=== PATIENT | female | born 2000 ===

== ENCOUNTER 2024-10-23 08:39 | Outpatient (AMB) | payer MEDICAID, SELFPAY ==
--- NOTE | 2024-10-23 08:41 | OBCLNT_ITS ---
Vital Signs 10/23/24 08:50 Height 1.57 m Height Method Stated Weight 57.266 kg Weight Measurement Method Standing Scale BMI 23.1 BP 106/65 Blood Pressure Source Automatic Cuff Blood Pressure Location Right Upper Arm Position Sitting Respiration 18 Pulse 74 Pulse Source Monitor Temp 97.7 F Temp Source Temporal Artery Scan Pulse Oximetry (%) 98 Oxygen Delivery Method Room Air Allergies/Home Meds Allergies & Medications Allergies No Known Allergies Allergy (Verified 10/23/24 08:50) Medication Reconciliation vits no.126-ferrous fum 28 mg iron-folic acid 800 mcg tablet (Classic ) tab PO 10/23/24 [History Confirmed 10/23/24] Intake Visit Data Collection New Patient or Established: Established Patient (seen at [facility] within 3 years) Reason for Visit:: First visit for , nausea, decreased appetite Do You Feel Safe at Home: Yes Authorities Contacted: N/A PCP or OBGYN visit in last 3 months: Yes Are you currently on any form of Control: No Last menstrual period: 07/16/24 Pain Present Currently: No Smoking Status Smoking Status: Never smoker Questionnaires Covid-19 Vaccine Questionnaire Has patient been vacinated for Covid-19 Have you been vacinated for Covid-19: No PHQ-9 PHQ-2 Over the last 2 weeks, how often have you been bothered by any of the following problems? 1. Little interest or pleasure in doing things: not at all 2. Feeling down, depressed, or hopeless: not at all Total score: 0 Depression screen completed yes Social History Living Situation History Marital Status: Life Partner Lives With: Spouse Housing: House Tobacco History Smoking Status: Never smoker Alcohol History Alcohol Intake: Never Domestic Abuse History Do You Feel Safe at Home: Yes Past Medical History Past Medical History Have you ever been diagnosed with any of the following: Cardiology Problems Congestive Heart Failure: No Respiratory Problems Chronic Obstructive Pulmonary Disease (COPD): No Asthma: No Genital/Urinary Problems Renal Disease: No Endocrine Problems Diabetes Mellitus Type 1: No Diabetes Mellitus Type 2: No Psychologic Problems Depression: No Anxiety: No Depression: No Other Problems Hospitalization: No Falls: No Blood Transfusions: Yes Anesthesia Reactions: No History of Present Illness RUBEN Hurley is a woman presenting for her first visit. She reports her last menstrual period was on July 16, which calculates to a gestational age of 14 weeks and an estimated due date of April 22. This is her third , with two previous vaginal deliveries resulting in children aged 2 and 10 years old. The patient reports experiencing some -related symptoms, including a decrease in appetite. She denies significant nausea or vomiting. No other specific complaints or problems are mentioned. Mei's history includes one delivery at this hospital for her 1-year-old child, while her 10-year-old was born in [place]. Obstetric History - GTPAL: L2 - Current : - Gestational age: 14 weeks by last menstrual period - Estimated due date: April 22, 2025 - history: - 1-year-old child, delivered vaginally at this hospital - 8-year-old child, delivered vaginally in [place] Medications and Supplements - vitamins Social History - Children: Has two children, ages 2 and 10 - Language: Palestinian-speaking Review of Systems General: Positive for decreased appetite. Gastrointestinal: Negative for nausea, vomiting. OB Ultrasound OB Ultrasound Ultrasound technique: transabdominal Gestational sac assessment: Presence, location, size, shape: - heart rate: 149 bpm (normal) - Gestational age: 12 weeks (based on measurements) OB Initial Visit OB Flowsheet OB Flowsheet Initial Weight: Not Recorded Date -?-?-?-?-?-?-?-?-?-?-?-?- EGA Weight Edema CTX Effacement BP Fundal ht Pres Dilation Effacement Station Visit Note Alb Glu FHR Mov 10/23/24 -?-?-?-?-?-?-?-?-?-?-?-?- 14w 1d 57.266 kg 106/65 14w0 d by LMP (CELIA 04/22/25). ? appetite. No CTX/LOF/VB. 2 prior VD ([facility], [place]). vitamins. Palestinian-speaking. FHR 149 bpm, single live IUP, EGA 12w0d by bedside US. Plan: formal US for dating/anatomy, routine labs, continue vitamins, f/u after results. Routine care initiated, anticipatory guidance provided. Menstrual History Menstrual reliability: definite Flow: light Menstrual regularity: irregular Monthly: No Age at menarche: 11 On control pills at conception: No Date of positive home test: 08/26/24 OB History : 3 Para: 2 # of Living Children: 2 Infection History & Risk Evaluation History of STDs: none HIV risk evaluation: low risk Hepatitis B risk evaluation: low risk Patient or partner has history of Genital Herpes: No Varicella/chicken pox status: immunized Genetic Screening & History Genetic Screening/Teratology Counseling - Includes patient, baby's father, or anyone in either family with: 1. Patient's age 35 years or older as of estimated date of delivery: No 2. Thalassemia (Citizen Of The [place], Kenyan, Mediterranean, or Background); MCV less than 80: No 3. Neural Tube Defect (Meningomyelocele, Spina Bifida, or Anencephaly): No 4. Congenital Heart Defect: No 5. Down Syndrome: No 6. Juancarlos-Sachs (Ashkenazi Yazidi, Cajun, Beninese Cecil): No 7. Анна Disease (Ashkenazi Yazidi): No 8. Familial Dysautonomia (Ashkenazi Yazidi): No 9. Sickle Cell Disease or Trait (): No 10. Hemophilia or other blood disorders: No 11. Muscular Dystrophy: No 12. Cystic Fibrosis: No 13. Revere's Chorea: No 14. Mental Retardation/Autism: No 15. Other inherited genetic or chromosomal disorder: No 16. Maternal Metabolic Disorder (EG,TYPE 1 Diabetes, PKU): No 17. Patient or baby's father had a child with defects not listed above: No 18. Recurrent loss or a stillbirth: No 19. Medications (including supplements, vitamins, herbs or otc drugs)/illicit/recreational drugs/alcohol since last menstrual period: No 20. Any other: No Infection History 1. Live with someone with TB or exposed to TB: No 2. Rash or viral illness since last menstrual period: No 3. Hepatitis B,C: No Other (see comments) Source: [employer] Assessment & Plan Diagnosis / Problem List (1) Supervision of high risk , unspecified, first trimester: Status: Acute Plan Mei, , presents for initial obstetric visit at approximately 14 weeks gestation based on LMP of July 16, 2024, with chief complaint of decreased appetite. Intrauterine Assessment: Patient presents for initial obstetric visit. LMP reported as July 16, 2024, which correlates to an estimated gestational age (EGA) of 14 weeks and estimated due date (CELIA) of April 22, 2025. Bedside ultrasound performed, revealing a single live intrauterine with heart rate of 149 bpm, which is within normal range. measurements suggest a gestat ional age of 12 weeks, which is close to but slightly discrepant from the LMP- based dating. Patient reports decreased appetite but denies significant nausea or vomiting. Plan: - Order official ultrasound for definitive dating and anatomical survey - Order routine labs - Patient to obtain vitamins - Follow-up appointment to be scheduled after lab and ultrasound results are available Obstetrical history Assessment: , with two previous vaginal deliveries. Children are 10 years old and 1 years old. The 1-year-old was delivered at this hospital, while the 10-year-old was born in [place]. Plan: - Continue routine care Office Procedures OB Clinic LOC & Office Proc's Nursing/Assessment Patient Status: Initial/New Patient OB Clinic Nursing Assessment: Medication Reconciliation, Update PMH in EMR and Vital Signs OB Clinic Coordination of Care: Complex Care and Chronic Disease 1-5, Education Complex Pt/Fam, Consent,records obtained, informed consent, Lab and Imaging orders, Results/Orders obtained and Staff clarify orders New Patient Charge New Patient Point Assignment: [id number] New Patient Point Charge: BULKER Level 3 ([id number])
[2024-10-23 08:50] VITALS: BP 106/65; PULSE 74; RESP 18; TEMP 36.5; O2SAT 98; BMI 23.1
== END 2024-10-23 09:08 | disposition home or self-care (01) ==
LOC: HODSOBC 08:39
PROVIDERS: PCP Family Medicine; Referring Provider Family Medicine; Supervising Provider Obstetrics & Gynecology; Visit Provider Obstetrics & Gynecology
DX: O09.92 Supervision of high risk pregnancy, unspecified, second trimester (principal); Z3A.14 14 weeks gestation of pregnancy
CPT/HCPCS: 99203; G0463

== ENCOUNTER 2024-11-21 15:40 | Outpatient (AMB) | payer MEDICAID, SELFPAY ==
[2024-11-21 15:49] VITALS: BP 97/57; PULSE 81; RESP 18; TEMP 36.8; O2SAT 98; BMI 24.0
--- NOTE | 2024-11-21 15:49 | OBCLNT_ITS ---
Vital Signs 11/21/24 15:49 Height 1.57 m Height Method Stated Weight 59.421 kg Weight Measurement Method Standing Scale BMI 24.0 BP 97/57 L Blood Pressure Source Automatic Cuff Blood Pressure Location Right Upper Arm Position Sitting Respiration 18 Pulse 81 Pulse Source Monitor Temp 98.2 F Temp Source Oral Pulse Oximetry (%) 98 Oxygen Delivery Method Room Air Allergies/Home Meds Allergies & Medications Allergies No Known Allergies Allergy (Verified 11/21/24 15:50) Medication Reconciliation vits no.126-ferrous fum 28 mg iron-folic acid 800 mcg tablet (Classic ) tab PO 10/23/24 [History Confirmed 11/21/24] azithromycin 500 mg tablet 1,000 mg (2 x 500 mg) PO QDAY 1 day #2 tabs 11/21/24 [Rx] azithromycin 500 mg tablet 1,000 mg (2 x 500 mg) PO QDAY 1 day #2 tabs 11/21/24 [Rx] Intake Visit Data Collection New Patient or Established: Established Patient (seen at [facility] [place] within 3 years) Reason for Visit:: CARE Seen by Clinical Staff ONLY (RN/MA): No Glass Blowing 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 1. Little interest or pleasure in doing things: not at all 2. Feeling down, depressed, or hopeless: not at all Total score: 0 PHQ-9 3. Trouble falling or staying asleep, or sleeping too much: Not at all 4. Feeling tired or having little energy: Not at all 5. Poor appetite or overeating: Not at all 6. Feeling bad about yourself - or that you are a failure or have let yourself or your family down: Not at all 7. Trouble concentrating on things, such as reading the newspaper or watching television: Not at all 8. Moving or speaking so slowly that other people could have noticed? - Or the opposite - being so fidgety or restless that you have been moving around a lot more than usual: not at all 9. Thoughts that you would be better off or of hurting yourself in some way: Not at all Total score: 0 Source: Developed by Drs. Quintin Clark, Destiny Lyons, Sukhi Nichole and colleagues, with an educational john from [employer]. 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 ? appetite. No CTX/LOF/VB. 2 prior VD ([facility] [place], [place]). vitamins. Turkmen-speaking. FHR 149 bpm, single live IUP, EGA 12w0d by bedside US. Plan: formal US for dating/anatomy, routine labs, continue vitamins, f/u after results. Routine care initiated, anticipatory guidance provided. 11/21/24 -?-?-?-?-?-?-?-?-?-?-?-?- 16w 1d 59.421 kg 97/57 absent unknown 16 145 doing well , light FM, no SAB complaints discuss lab, AFP today. schedule MFM for anatomy scan. continue PNV, sab precaution, increase fluid. rtc 4 week discuss lab, AFP today. sche dule MFM for anatomy scan. continue PNV, sab precaution, increase fluid. rtc 4 week. + chlamydia, reviewed results with patient, discuss safe sex, ordered Zithromax 1 gm to patient and partner. no sex x 1 week, condom x 2 week. ALPHONSE in 4 week CELIA Calculator Estimated Delivery Date Method Current WG Current Estimate 05/07/25 Ultrasound #1 16w 1d Other Estimates 04/22/25 LMP (Certain) 18w 2d Notes Visit Date: 11/21/24 Last Updated by: Sravani Pan, JEMAL 24 yo LMP 07/16/24.. EDC 04/22/25. wrong dates. OB sono 10/23/24: 12 wk. EDC 05/07/25. HBsag-, hiv-,HC-, GC/CT- rub ni, O+,abs-, Chlamydia+/GC-. NIPT-/Girl, SMA-, CF- RX zithromax 1 gm to pt and partner 11/21 Office Procedures OB Clinic LOC & Office Proc's Nursing/Assessment Patient Status: Established Patient OB Clinic Nursing Assessment: Medication Reconciliation, Update PMH in EMR and Vital Signs OB Clinic Coordination of Care: Complex Care and Chronic Disease 1-5, Consent,records obtained, informed consent, Education Simp Pt/Fam, Lab and Imaging orders, Results/Orders obtained and Staff clarify orders Special Needs: Heart tones Established Patient Charge Established Patient Point Assignment: 135 Established Patient Point Charge: EP Level 4 (120-155) Assessment & Plan Diagnosis / Problem List (1) Supervision of high risk , unspecified, first trimester: Status: Acute (2) Chlamydia contact: Status: Acute Plan AFP today, schedule anatomy scan with MFM, discuss + CT, zithromax 1 gm to patient and partner, no sex x 1 week, condom x 2 week, discuss safe sex. continue pnv, increase fluid. ALPHONSE 4 week and OBC Additional Plan Follow Up: 4 Weeks (obc/alphonse)
== END 2024-11-21 16:56 | disposition home or self-care (01) ==
LOC: HODSOBC 15:40
PROVIDERS: PCP Family Medicine; Referring Provider Family Medicine; Supervising Provider Obstetrics & Gynecology; Visit Provider Obstetrics & Gynecology
DX: O09.892 Supervision of other high risk pregnancies, second trimester (principal); Z3A.16 16 weeks gestation of pregnancy; O98.312 Other infections with a predominantly sexual mode of transmission complicating pregnancy, second trimester; A56.8 Sexually transmitted chlamydial infection of other sites
CPT/HCPCS: 99214; G0463

== ENCOUNTER 2024-12-31 13:42 | Outpatient (AMB) | payer MEDICAID, SELFPAY ==
[2024-12-31 13:51] VITALS: BP 114/69; PULSE 108; RESP 17; TEMP 37; O2SAT 96; BMI 24.3
--- NOTE | 2024-12-31 13:51 | OBCLNT_ITS ---
Vital Signs 12/31/24 13:51 Height 1.57 m Height Method Stated Weight 59.988 kg Weight Measurement Method Standing Scale BMI 24.3 BP 114/69 Blood Pressure Source Automatic Cuff Blood Pressure Location Right Upper Arm Position Sitting Respiration 17 Pulse 108 H Pulse Source Monitor Temp 98.6 F Temp Source Temporal Artery Scan Pulse Oximetry (%) 96 Oxygen Delivery Method Room Air Allergies/Home Meds Allergies & Medications Allergies No Known Allergies Allergy (Verified 12/31/24 13:52) Medication Reconciliation vits no.126-ferrous fum 28 mg iron-folic acid 800 mcg tablet (Classic ) tab PO 10/23/24 [History Confirmed 12/31/24] Intake Visit Data Collection New Patient or Established: Established Patient (seen at [facility] within 3 years) Reason for Visit:: OBC Seen by Clinical Staff ONLY (RN/MA): No Appliance Mechanic Required: No Do You Feel Safe at Home: Yes Authorities Contacted: N/A PCP or OBGYN visit in last 3 months: Yes Date of Last PCP or OBGYN visit: 11/21/24 Hx Now: Yes Are you currently on any form of Control: No Pain Present Currently: No Pain Scale Used: Guallpa-Jacinto/Numerical Pain scale:: 0 Smoking Status Smoking Status: Never smoker Questionnaires Covid-19 Vaccine Questionnaire Has patient been vacinated for Covid-19 Have you been vacinated for Covid-19: No PHQ-9 PHQ-2 Over the last 2 weeks, how often have you been bothered by any of the following problems? 1. Little interest or pleasure in doing things: not at all 2. Feeling down, depressed, or hopeless: not at all Total score: 0 PHQ-9 3. Trouble falling or staying asleep, or sleeping too much: Not at all 4. Feeling tired or having little energy: Not at all 5. Poor appetite or overeating: Not at all 6. Feeling bad about yourself - or that you are a failure or have let yourself or your family down: Not at all 7. Trouble concentrating on things, such as reading the newspaper or watching television: Not at all 8. Moving or speaking so slowly that other people could have noticed? - Or the opposite - being so fidgety or restless that you have been moving around a lot more than usual: not at all 9. Thoughts that you would be better off or of hurting yourself in some way: Not at all Total score: 0 If you checked off any problems, how difficult have these problems made it for you to do your work, take care of things at home, or get along with other people?: not difficult at all Source: Developed by Drs. Quintin Clark, Destiny Lyons, Sukhi Nichole and colleagues, with an educational john from [employer]. Depression screen completed yes Social History Living Situation History Marital Status: Lives With: Family Housing: House Housing Other:: Patient lives with her parents. This is a new father of the baby. 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 ? appetite. No CTX/LOF/VB. 2 prior VD ([facility], [place]). vitamins. Sinhala-speaking. FHR 149 bpm, single live IUP, EGA 12w0d by bedside US. Plan: formal US for da ting/anatomy, routine labs, continue vitamins, f/u after results. Routine care initiated, anticipatory guidance provided. 11/21/24 -?-?-?-?-?-?-?-?-?-?-?-?- 16w 1d 59.421 kg 97/57 absent unknown 16 145 doing well , light FM, no SAB complaints discuss lab, AFP today. schedule MFM for anatomy scan. continue PNV, sab precaution, increase fluid. rtc 4 week discuss lab, AFP today. nellie dozier MFM for anatomy scan. continue PNV, sab precaution, increase fluid. rtc 4 week. + chlamydia, reviewed results with patient, discuss safe sex, ordered Zithromax 1 gm to patient and partner. no sex x 1 week, condom x 2 week. ALPHONSE in 4 week 12/31/24 -?-?-?-?-?-?-?-?-?-?-?-?- 21w 6d 59.988 kg 114/69 absent unknown 23 145 active no OB complaints, fetus active Nuswab plus/ALPHONSE. ptl precaution. hydrate. keep appointment 01/02. rtc 4 week OBC. safe sex CELIA Calculator Estimated Delivery Date Method Current WG Current Estimate 05/07/25 Ultrasound #1 21w 6d Other Estimates 04/22/25 LMP (Certain) 24w 0d Notes Visit Date: 11/21/24 Last Updated by: Sravani Pan CNM 24 yo LMP 07/16/24.. EDC 04/22/25. wrong dates. OB sono 10/23/24: 12 wk. EDC 05/07/25. HBsag-, hiv-,HC-, GC/CT- rub ni, O+,abs-, Chlamydia+/GC-. /NIPT-/Girl, SMA-, CF- RX zithromax 1 gm to pt and partner 11/21 Office Procedures OB Clinic LOC & Office Proc's Nursing/Assessment Patient Status: Established Patient OB Clinic Nursing Assessment: Medication Reconciliation, Update PMH in EMR and Vital Signs OB Clinic Coordination of Care: Complex Care and Chronic Disease 1-5, Consent,records obtained, informed consent, Education Simp Pt/Fam and Staff clarify orders Special Needs: Heart tones Established Patient Charge Established Patient Point Assignment: 115 Established Patient Point Charge: EP Level 3 (80-115) Assessment & Plan Diagnosis / Problem List (1) Encounter for supervision of high risk in second trimester, antepartum: Status: Acute Additional Plan Follow Up: 4 Weeks (obc)
== END 2024-12-31 14:08 | disposition home or self-care (01) ==
LOC: HODSOBC 13:42
PROVIDERS: PCP Family Medicine; Referring Provider Family Medicine; Supervising Provider Advanced Practice Midwife; Visit Provider Advanced Practice Midwife
DX: O09.92 Supervision of high risk pregnancy, unspecified, second trimester (principal); Z3A.21 21 weeks gestation of pregnancy
CPT/HCPCS: 99213; G0463

== ENCOUNTER 2025-01-28 14:37 | Outpatient (AMB) | payer MEDICAID, SELFPAY ==
--- NOTE | 2025-01-28 14:44 | OBCLNT_ITS ---
Vital Signs 01/28/25 14:45 Height 1.57 m Height Method Stated Weight 58.74 kg Weight Measurement Method Standing Scale BMI 23.8 BP 96/58 L Blood Pressure Source Automatic Cuff Blood Pressure Location Right Upper Arm Position Sitting Respiration 17 Pulse 72 Pulse Source Monitor Temp 98.1 F Temp Source Temporal Artery Scan Pulse Oximetry (%) 98 Oxygen Delivery Method Room Air Allergies/Home Meds Allergies & Medications Allergies No Known Allergies Allergy (Verified 01/28/25 14:53) Medication Reconciliation vits no.126-ferrous fum 28 mg iron-folic acid 800 mcg tablet (Classic ) tab PO 10/23/24 [History Confirmed 01/28/25] azithromycin 500 mg tablet 1,000 mg (2 x 500 mg) PO QDAY 1 day #2 tabs 01/28/25 [Rx] azithromycin 500 mg tablet 1,000 mg (2 x 500 mg) PO QDAY 1 day #2 tabs 01/28/25 [Rx] clotrimazole 2 % vaginal cream (Gyne-Lotrimin) 1 appful vaginal QHS 3 days #21 grams 01/28/25 [Rx] Intake Visit Data Collection New Patient or Established: Established Patient (seen at [facility] within 3 years) Reason for Visit:: OBC Seen by Clinical Staff ONLY (RN/MA): No Student Liaison Officer Required: No Do You Feel Safe at Home: Yes Authorities Contacted: N/A PCP or OBGYN visit in last 3 months: Yes Date of Last PCP or OBGYN visit: 12/31/24 Hx Now: Yes Are you currently on any form of Control: No Pain Present Currently: Yes Pain Location: Back Pain Scale Used: Guallpa-Jacinto/Numerical Pain scale:: 4 Smoking Status Smoking Status: Never smoker Questionnaires Covid-19 Vaccine Questionnaire Has patient been vacinated for Covid-19 Have you been vacinated for Covid-19: No PHQ-9 PHQ-2 Over the last 2 weeks, how often have you been bothered by any of the following problems? 1. Little interest or pleasure in doing things: not at all 2. Feeling down, depressed, or hopeless: not at all Total score: 0 PHQ-9 3. Trouble falling or staying asleep, or sleeping too much: Not at all 4. Feeling tired or having little energy: Not at all 5. Poor appetite or overeating: Not at all 6. Feeling bad about yourself - or that you are a failure or have let yourself or your family down: Not at all 7. Trouble concentrating on things, such as reading the newspaper or watching television: Not at all 8. Moving or speaking so slowly that other people could have noticed? - Or the opposite - being so fidgety or restless that you have been moving around a lot more than usual: not at all 9. Thoughts that you would be better off or of hurting yourself in some way: Not at all Total score: 0 If you checked off any problems, how difficult have these problems made it for you to do your work, take care of things at home, or get along with other people?: not difficult at all Source: Developed by Drs. Quintin Clark, Destiny Lyons, Sukhi Nichole and colleagues, with an educational john from [employer]. Depression screen completed yes Social History Living Situation History Marital Status: Lives With: Family Housing: House Housing Other:: Patient lives with her parents. This is a new father of the baby. 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 ? appetite. No CTX/LOF/VB. 2 prior VD ([facility], [place]). vitamins. Bruneian-speaking. FHR 149 bpm, single live IUP, EGA 12w0d by bedside US. Plan: formal US for dating/anatomy, routine labs, continue vitamins, f/u after results. Routine care initiated, anticipatory guidance provided. 11/21/24 -?-?-?-?-?-?-?-?-?-?-?-?- 16w 1d 59.421 kg 97/57 absent unknown 16 145 doing well , light FM, no SAB complaints discuss lab, AFP today. schedule MFM for anatomy scan. continue PNV, sab precaution, increase fluid. rtc 4 week discuss lab, AFP today. sche dule MFM for anatomy scan. continue PNV, sab precaution, increase fluid. rtc 4 week. + chlamydia, reviewed results with patient, discuss safe sex, ordered Zithromax 1 gm to patient and partner. no sex x 1 week, condom x 2 week. ALPHONSE in 4 week 12/31/24 -?-?-?-?-?-?-?-?-?-?-?-?- 21w 6d 59.988 kg 114/69 absent unknown 23 145 active no OB complaints, fetus active Nuswab plus/ALPHONSE. ptl precaution. hydrate. keep appointment 01/02. rtc 4 week OBC. safe sex 01/28/25 -?-?-?-?-?-?-?-?-?-?-?-?- 25w 6d 58.74 kg 96/58 absent unknown 25 147 active + Nuswab ALPHONSE for chlamydia. + yeast. . fetus active, no VB,no ROM,Nu leaking, fetus active Zithromax 1 g to patient partner. Discussed positive chlamydia results. No sex. And I discussed safe sex with patient. Discussed importance of partner treatment. Ordered third trimester labs. Ordered MACHINE MOVER Lotrimin 1-2 per vagina every night for 3 nights. Patient has follow-up ultrasound in 6 to 8 weeks. Repeat test of cure in 4 weeks. CELIA Calculator Estimated Delivery Date Method Current WG Current Estimate 05/07/25 Ultrasound #1 25w 6d Other Estimates 04/22/25 LMP (Certain) 28w 0d Notes Visit Date: 01/28/25 Last Updated by: Sravani Pan CNM 8/: ALPHONSE +. rx 1 gm zithromax to patient and partner Visit Date: 11/21/24 Last Updated by: Sravani Pan CNM 24 yo LMP 07/16/24.. EDC 04/22/25. wrong dates. OB sono 10/23/24: 12 wk. EDC 05/07/25. HBsag-, hiv-,HC-, GC/CT- rub ni, O+,abs-, Chlamydia+/GC-. NIPT-/Girl, SMA-, CF- RX zithromax 1 gm to pt and partner 11/21 Office Procedures OB Clinic LOC & Office Proc's Nursing/Assessment Patient Status: Established Patient OB Clinic Nursing Assessment: Medication Reconciliation, Update PMH in EMR and Vital Signs OB Clinic Coordination of Care: Complex Care and Chronic Disease 1-5, Consent,records obtained, informed consent, Education Simp Pt/Fam and Staff clarify orders Special Needs: Heart tones Established Patient Charge Established Patient Point Assignment: 115 Established Patient Point Charge: EP Level 3 (80-115) Assessment & Plan Diagnosis / Problem List (1) Chlamydia contact: Status: Acute (2) Encounter for supervision of high risk in second trimester, antepartum: Status: Acute Plan Third trimester labs ordered. Zithromax 1 g to patient and partner. No sex. Discussed test of cure results. Discussed safe sex. MACHINE MOVER Lotrimin x 7. Follow- up maternal- medicine appointment in 6 to 8 weeks. And labor precautions given. Test of cure in 4 weeks. Return in 4 weeks OB check Additional Plan Follow Up: 4 Weeks (obc)
[2025-01-28 14:45] VITALS: BP 96/58; PULSE 72; RESP 17; TEMP 36.7; O2SAT 98; BMI 23.8
== END 2025-01-28 14:58 | disposition home or self-care (01) ==
LOC: HODSOBC 14:37
PROVIDERS: Supervising Provider Advanced Practice Midwife; Visit Provider Advanced Practice Midwife
DX: O09.892 Supervision of other high risk pregnancies, second trimester (principal); O98.312 Other infections with a predominantly sexual mode of transmission complicating pregnancy, second trimester; A56.8 Sexually transmitted chlamydial infection of other sites; Z3A.25 25 weeks gestation of pregnancy
CPT/HCPCS: 99213; G0463

== ENCOUNTER 2025-02-26 15:10 | Outpatient (AMB) | payer MEDICAID, SELFPAY ==
--- NOTE | 2025-02-26 15:14 | OBCLNT_ITS ---
Vital Signs 02/26/25 15:16 Height 1.57 m Height Method Stated Weight 61.008 kg Weight Measurement Method Standing Scale BMI 24.7 BP 97/68 Blood Pressure Source Automatic Cuff Blood Pressure Location Left Upper Arm Position Sitting Respiration 16 Pulse 80 Pulse Source Monitor Temp 98 F Temp Source Oral Pulse Oximetry (%) 98 Oxygen Delivery Method Room Air Allergies/Home Meds Allergies & Medications Allergies No Known Allergies Allergy (Verified 02/26/25 15:25) Medication Reconciliation vits no.126-ferrous fum 28 mg iron-folic acid 800 mcg tablet (Classic ) tab PO 10/23/24 [History Confirmed 02/26/25] Intake Visit Data Collection New Patient or Established: Established Patient (seen at [facility] within 3 years) Reason for Visit:: CARE Seen by Clinical Staff ONLY (RN/MA): No Interpreter Deaf Required: No Do You Feel Safe at Home: Yes Authorities Contacted: N/A PCP or OBGYN visit in last 3 months: Yes Hx Now: Yes Are you currently on any form of Control: No Pain Present Currently: No Pain Scale Used: Guallpa-Jacinto/Numerical Pain scale:: 0 Smoking Status Smoking Status: Never smoker Questionnaires Covid-19 Vaccine Questionnaire Has patient been vacinated for Covid-19 Have you been vacinated for Covid-19: Yes PHQ-9 PHQ-2 Over the last 2 weeks, how often have you been bothered by any of the following problems? 1. Little interest or pleasure in doing things: not at all 2. Feeling down, depressed, or hopeless: not at all Total score: 0 PHQ-9 3. Trouble falling or staying asleep, or sleeping too much: Not at all 4. Feeling tired or having little energy: Not at all 5. Poor appetite or overeating: Not at all 6. Feeling bad about yourself - or that you are a failure or have let yourself or your family down: Not at all 7. Trouble concentrating on things, such as reading the newspaper or watching television: Not at all 8. Moving or speaking so slowly that other people could have noticed? - Or the opposite - being so fidgety or restless that you have been moving around a lot more than usual: not at all 9. Thoughts that you would be better off or of hurting yourself in some way: Not at all Total score: 0 Source: Developed by Drs. Quintin Clark, Destiny Lyons, Sukhi Nichole and colleagues, with an educational john from [employer]. Depression screen completed yes Social History Living Situation History Lives With: Family Housing: House Housing Other:: Patient lives with her parents. This is a new father of the baby. 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 ? appetite. No CTX/LOF/VB. 2 prior VD ([facility], [employer]). vitamins. Botswanan-speaking. FHR 149 bpm, single live IUP, EGA 12w0d by bedside US. Plan: formal US for dating/anatomy, routine labs, continue vitamins, f/u after results. Routine care initiated, anticipatory guidance provided. 11/21/24 -?-?-?-?-?-?-?-?-?-?-?-?- 16w 1d 59.421 kg 97/57 absent unknown 16 145 doing well , light FM, no SAB complaints discuss lab, AFP today. schedule MFM for anatomy scan. continue PNV, sab precaution, increase fluid. rtc 4 week discuss lab, AFP today. sche dule MFM for anatomy scan. continue PNV, sab precaution, increase fluid. rtc 4 week. + chlamydia, reviewed results with patient, discuss safe sex, ordered Zithromax 1 gm to patient and partner. no sex x 1 week, condom x 2 week. ALPHONSE in 4 week 12/31/24 -?-?-?-?-?-?--?-?-?-?-?-?- 21w 6d 59.988 kg 114/69 absent unknown 23 145 active no OB complaints, fetus active Nuswab plus/ALPHONSE. ptl precaution. hydrate. keep appointment 01/02. rtc 4 week OBC. safe sex 01/28/25 -?-?-?-?-?-?-?-?-?-?-?-?- 25w 6d 58.74 kg 96/58 absent unknown 25 147 active + Nuswab ALPHONSE for chl amydia. + yeast. . fetus active, no VB,no ROM,Nu leaking, fetus active Zithromax 1 g to patient partner. Discussed positive chlamydia results. No sex. And I discussed safe sex with patient. Discussed importance of partner treatment. Ordered third trimester labs. Ordered FISHER LAMPARA NET Lotrimin 1-2 per vagina every night for 3 nights. Patient has follow-up ultrasound in 6 to 8 weeks. Repeat test of cure in 4 weeks. 02/26/25 -?-?-?-?-?-?-?-?-?-?-?-?- 30w 0d 61.008 kg 97/68 absent unknown 29 146 active Fetus active. Patient reports that she has not had sex for 4 weeks. I advised patient that we will repeat her test for gonorrhea and chlamydia next visit. Fetus is active. She is taking her vitamins. Declined Tdap today. Denies contractions. Denies leaking, denies bleeding Test of cure next visit. Discussed labor precautions. Continue vitamins and iron. Increase fluids. Return in 2 weeks OB check CELIA Calculator Estimated Delivery Date Method Current WG Current Estimate 05/07/25 Ultrasound #1 30w 0d Other Estimates 04/22/25 LMP (Certain) 32w 1d Notes Visit Date: 02/26/25 Last Updated by: Sravani Pan CNM 3rd tri labs: 12.3/39, 4.8, RPR::NR, 1 hr gtt: 136 Visit Date: 01/28/25 Last Updated by: Sravani Pan CNM 01/28: ALPHONSE +. rx 1 gm zithromax to patient and partner Visit Date: 11/21/24 Last Updated by: Sravani Pan CNM 24 yo LMP 07/16/24.. EDC 04/22/25. wrong dates. OB sono 10/23/24: 12 wk. EDC 05/07/25. HBsag-, hiv-,HC-, GC/CT- rub ni, O+,abs-, Chlamydia+/GC-. /172NIPT-/Girl, SMA-, CF- RX zithromax 1 gm to pt and partner 11/21 Office Procedures OB Clinic LOC & Office Proc's Nursing/Assessment Patient Status: Established Patient OB Clinic Nursing Assessment: Medication Reconciliation, Update PMH in EMR and Vital Signs OB Clinic Coordination of Care: Complex Care and Chronic Disease 1-5, Consent,records obtained, informed consent, Education Simp Pt/Fam, Lab and Imaging orders, Results/Orders obtained and Staff clarify orders Special Needs: Heart tones Established Patient Charge Established Patient Point Assignment: 135 Established Patient Point Charge: EP Level 4 (120-155) Assessment & Plan Diagnosis / Problem List (1) Encounter for supervision of normal in multigravida in third trimester: Status: Acute Plan Discussed labs. Discussed labor precautions. Increase fluids. Kick count twice a day. No sex. Return in 2 weeks for test of cure and Tdap. Additional Plan Follow Up: 2 Weeks (obc)
[2025-02-26 15:16] VITALS: BP 97/68; PULSE 80; RESP 16; TEMP 36.6; O2SAT 98; BMI 24.7
== END 2025-02-26 15:52 | disposition home or self-care (01) ==
LOC: HODSOBC 15:10
PROVIDERS: Supervising Provider Advanced Practice Midwife; Visit Provider Advanced Practice Midwife
DX: Z34.83 Encounter for supervision of other normal pregnancy, third trimester (principal); Z3A.30 30 weeks gestation of pregnancy; Z28.21 Immunization not carried out because of patient refusal
CPT/HCPCS: 99214; G0463

== ENCOUNTER 2025-03-12 13:00 | Outpatient (AMB) | payer MEDICAID, SELFPAY ==
[2025-03-12 13:19] VITALS: BP 93/64; PULSE 81; RESP 16; TEMP 36.4; O2SAT 97; BMI 24.7
--- NOTE | 2025-03-12 13:19 | OBCLNT_ITS ---
Vital Signs 03/12/25 13:19 Height 1.57 m Height Method Stated Weight 61.008 kg Weight Measurement Method Standing Scale BMI 24.7 BP 93/64 Blood Pressure Source Automatic Cuff Blood Pressure Location Left Upper Arm Position Sitting Respiration 16 Pulse 81 Pulse Source Monitor Temp 97.5 F Temp Source Oral Pulse Oximetry (%) 97 Oxygen Delivery Method Room Air Allergies/Home Meds Allergies & Medications Allergies No Known Allergies Allergy (Verified 03/12/25 13:20) Medication Reconciliation vits no.126-ferrous fum 28 mg iron-folic acid 800 mcg tablet (Classic ) tab PO 10/23/24 [History Confirmed 03/12/25] Intake Visit Data Collection New Patient or Established: Established Patient (seen at [facility] within 3 years) Reason for Visit:: CARE Seen by Clinical Staff ONLY (RN/MA): No Functional Tester Typewriters Required: No Do You Feel Safe at Home: Yes Authorities Contacted: N/A PCP or OBGYN visit in last 3 months: Yes Hx Now: Yes Are you currently on any form of Control: No Pain Present Currently: No Pain Scale Used: Guallpa-Jacinto/Numerical Pain scale:: 0 Smoking Status Smoking Status: Never smoker Questionnaires Covid-19 Vaccine Questionnaire Has patient been vacinated for Covid-19 Have you been vacinated for Covid-19: Yes PHQ-9 PHQ-2 Over the last 2 weeks, how often have you been bothered by any of the following problems? 1. Little interest or pleasure in doing things: not at all 2. Feeling down, depressed, or hopeless: not at all Total score: 0 PHQ-9 3. Trouble falling or staying asleep, or sleeping too much: Not at all 4. Feeling tired or having little energy: Not at all 5. Poor appetite or overeating: Not at all 6. Feeling bad about yourself - or that you are a failure or have let yourself or your family down: Not at all 7. Trouble concentrating on things, such as reading the newspaper or watching television: Not at all 8. Moving or speaking so slowly that other people could have noticed? - Or the opposite - being so fidgety or restless that you have been moving around a lot more than usual: not at all 9. Thoughts that you would be better off or of hurting yourself in some way: Not at all Total score: 0 Source: Developed by Drs. Quintin Clark, Destiny Lyons, Sukhi Nichole and colleagues, with an educational john from [employer]. Depression screen completed yes Social History Living Situation History Lives With: Family Housing: House Housing Other:: Patient lives with her parents. This is a new father of the baby. 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 ? appetite. No CTX/LOF/VB. 2 prior VD ([facility], [place]). vitamins. [place]bourgish-speaking. FHR 149 bpm, single live IUP, EGA 12w0d by bedside US. Plan: formal US for dating/anatomy, routine labs, continue vitamins, f/u after results. Routine care initiated, anticipatory guidance provided. 11/21/24 -?-?-?-?-?-?-?-?-?-?-?-?- 16w 1d 59.421 kg 97/57 absent unknown 16 145 doing well , light FM, no SAB complaints discuss lab, AFP today. schedule MFM for anatomy scan. continue PNV, sab precaution, increase fluid. rtc 4 week discuss lab, AFP today. sche dule MFM for anatomy scan. continue PNV, sab precaution, increase fluid. rtc 4 week. + chlamydia, reviewed results with patient, discuss safe sex, ordered Zithromax 1 gm to patient and partner. no sex x 1 week, condom x 2 week. ALPHONSE in 4 week 12/31/24 -?-?-?--?-?-?-?-?-?-?-?-?- 21w 6d 59.988 kg 114/69 absent unknown 23 145 active no OB complaints, fetus active Nuswab plus/ALPHONSE. ptl precaution. hydrate. keep appointment 01/02. rtc 4 week OBC. safe sex 01/28/25 -?-?-?-?-?-?-?-?-?-?-?-?- 25w 6d 58.74 kg 96/58 absent unknown 25 147 active + Nuswab ALPHONSE for chlamydia. + yeast. . fetus active, no VB,no ROM,Nu leaking, fetus active Zithromax 1 g to patient partner. Discussed positive chlamydia results. No sex. And I discussed safe sex with patient. Discussed importance of partner treatment. Ordered third trimester labs. 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 Patient has follow-up ultrasound in 6 to 8 weeks. Repeat test of cure in 4 weeks. 02/26/25 -?-?-?-?-?-?-?-?-?-?-?-?- 30w 0d 61.008 kg 97/68 absent unknown 29 146 active Fetus active. Patient reports that she has not had sex for 4 weeks. I advised patient that we will repeat her test for gonorrhea and chlamydia next visit. Fetus is active. She is taking her vitamins. Declined Tdap today. Denies contractions. Denies leaking, denies bleeding Test of cure next visit. Discussed labor precautions. Continue vitamins and iron. Increase fluids. Return in 2 weeks OB check 03/12/25 -?-?-?-?-?-?-?-?-?-?-?-?- 32w 0d 61.008 kg 93/64 absent cephalic 31 135 active Fetus active per patient. Denies contractions. Denies bleeding. Denies leaking. Patient reports compliance with Zithromax treatment New swab PLUS today for test of cure. Discussed safe sex practices and condom use. Discussed labor precautions and kick count twice a day. Increase fluids. Tdap today. Return in 2 weeks OB check, start disability today, field labor, back ache and ligament pain CELIA Calculator Estimated Delivery Date Method Current WG Current Estimate 05/07/25 Ultrasound #1 32w 0d Other Estimates 04/22/25 LMP (Certain) 34w 1d 05/07/25 Ultrasound #2 32w 0d 05/07/25 Manual 32w 0d final CELIA: 04/27 07/21 Notes Visit Date: 03/12/25 Last Updated by: Sravani Pan CNM Final celia 05/07/25 Visit Date: 02/26/25 Last Updated by: Sravani Pan CNM 3rd tri labs: 12.3/39, 4.8, RPR::NR, 1 hr gtt: 136 Visit Date: 01/28/25 Last Updated by: Sravani Pan CNM 01/28: ALPHONSE +. rx 1 gm zithromax to patient and partner Visit Date: 11/21/24 Last Updated by: Sravani Pan CNM 24 yo LMP 07/16/24.. EDC 04/22/25. wrong dates. OB sono 10/23/24: 12 wk. EDC 05/07/25. HBsag-, hiv-,HC-, GC/CT- rub ni, O+,abs-, Chlamydia+/GC-. /NIPT-/Girl, SMA-, CF- RX zithromax 1 gm to pt and partner 11/21 Office Procedures OB Clinic LOC & Office Proc's Nursing/Assessment Patient Status: Established Patient OB Clinic Nursing Assessment: Medication Reconciliation, Update PMH in EMR and Vital Signs OB Clinic Coordination of Care: Complex Care and Chronic Disease 1-5, Consent,records obtained, informed consent, Education Simp Pt/Fam, 1 Ins Authorization, Lab and Imaging orders, Results/Orders obtained and Staff clarify orders Special Needs: Heart tones Established Patient Charge Established Patient Point Assignment: 150 Established Patient Point Charge: EP Level 4 (120-155) Immunizations diphth,pertus(acell),tetanus 2.5 Lf unit-8 mcg-5 Lf/0.5mL IM syringe Performing Provider: Sravani Pan CNM Performing Location: [facility] Administered by: Marcy Paez MA on 03/12/25 14:35 Dose Route Admin Location Dispensed Lot Number Expiration Date Pack age ND NDC 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 Continue vitamins. Discussed labors. Kick count twice a day. Disability starts today. Increase fluids. Return in 2 weeks OB. TDAP Additional Plan Follow Up: 2 Weeks (obc)
== END 2025-03-12 14:34 | disposition home or self-care (01) ==
LOC: HODSOBC 13:00
PROVIDERS: Supervising Provider Advanced Practice Midwife; Visit Provider Advanced Practice Midwife
DX: Z34.83 Encounter for supervision of other normal pregnancy, third trimester (principal); Z3A.32 32 weeks gestation of pregnancy; Z20.2 Contact with and (suspected) exposure to infections with a predominantly sexual mode of transmission; Z23 Encounter for immunization
CPT/HCPCS: 90471; 90715; 99214; G0463

== ENCOUNTER 2025-04-08 15:41 | Outpatient (AMB) | payer MEDICAID, SELFPAY ==
[2025-04-08 15:52] VITALS: BP 102/61; PULSE 73; RESP 17; TEMP 36.4; O2SAT 98; BMI 25.2
--- NOTE | 2025-04-08 15:52 | OBCLNT_ITS ---
Vital Signs 04/08/25 15:52 Height 1.57 m Height Method Stated Weight 62.256 kg Weight Measurement Method Standing Scale BMI 25.2 BP 102/61 Blood Pressure Source Automatic Cuff Blood Pressure Location Right Upper Arm Position Sitting Respiration 17 Pulse 73 Pulse Source Monitor Temp 97.5 F Temp Source Temporal Artery Scan Pulse Oximetry (%) 98 Oxygen Delivery Method Room Air Allergies/Home Meds Allergies & Medications Allergies No Known Allergies Allergy (Verified 03/12/25 13:20) Medication Reconciliation vits no.126-ferrous fum 28 mg iron-folic acid 800 mcg tablet (Classic ) tab PO 10/23/24 [History Confirmed 04/08/25] Intake Visit Data Collection New Patient or Established: Established Patient (seen at [facility] within 3 years) Reason for Visit:: OBC Seen by Clinical Staff ONLY (RN/MA): No Ec Teacher Required: Yes Do You Feel Safe at Home: Yes Authorities Contacted: N/A PCP or OBGYN visit in last 3 months: Yes Date of Last PCP or OBGYN visit: 03/12/25 Hx Now: Yes Are you currently on any form of Control: No Pain Present Currently: No Pain Scale Used: Guallpa-Jacinto/Numerical Pain scale:: 0 Smoking Status Smoking Status: Never smoker Questionnaires Covid-19 Vaccine Questionnaire Has patient been vacinated for Covid-19 Have you been vacinated for Covid-19: No PHQ-9 PHQ-2 Over the last 2 weeks, how often have you been bothered by any of the following problems? 1. Little interest or pleasure in doing things: not at all 2. Feeling down, depressed, or hopeless: not at all Total score: 0 PHQ-9 3. Trouble falling or staying asleep, or sleeping too much: Not at all 4. Feeling tired or having little energy: Not at all 5. Poor appetite or overeating: Not at all 6. Feeling bad about yourself - or that you are a failure or have let yourself or your family down: Not at all 7. Trouble concentrating on things, such as reading the newspaper or watching television: Not at all 8. Moving or speaking so slowly that other people could have noticed? - Or the opposite - being so fidgety or restless that you have been moving around a lot more than usual: not at all 9. Thoughts that you would be better off or of hurting yourself in some way: Not at all Total score: 0 If you checked off any problems, how difficult have these problems made it for you to do your work, take care of things at home, or get along with other people?: not difficult at all Source: Developed by Drs. Quintin Clark, Destiny Lyons, Sukhi Nichole and colleagues, with an educational john from [employer]. Depression screen completed yes Social History Living Situation History Marital Status: Life Partner Lives With: Family Housing: House Housing Other:: Patient lives with her parents. This is a new father of the baby. 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 ? appetite. No CTX/LOF/VB. 2 prior VD ([facility], [place]). vitamins. Armenian-speaking. FHR 149 bpm, single live IUP, EGA 12w0d by bedside US. Plan: formal US for dating/anatomy, routine labs, continue vitamins, f/u after results. Routine care initiated, anticipatory guidance provided. 11/21/24 -?-?-?-?-?-?-?-?-?-?-?-?- 16w 1d 59.421 kg 97/57 absent unknown 16 145 doing well , light FM, no SAB complaints discuss lab, AFP today. schedule MFM for anatomy scan. continue PNV, sab precaution, increase fluid. rtc 4 week discuss lab, AFP today. nellie cheneydenise SISSY for anatomy scan. continue PNV, sab precaution, increase fluid. rtc 4 week. + chlamydia, reviewed results with patient, discuss safe sex, ordered Zithromax 1 gm to patient and partner. no sex x 1 week, condom x 2 week. ALPHONSE in 4 week 12/31/24 -?-?-?-?-?-?-?-?-?-?-?-?- 21w 6d 59.988 kg 114/69 absent unknown 23 145 active no OB complaints, fetus active Nuswab plus/ALPHONSE. ptl precaution. hydrate. keep appointment 01/02. rtc 4 week OBC. safe sex 01/28/25 -?--?-?-?-?-?-?-?-?-?-?-?- 25w 6d 58.74 kg 96/58 absent unknown 25 147 active + Nuswab ALPHONSE for chlamydia. + yeast. . fetus active, no VB,no ROM,Nu leaking, fetus active Zithromax 1 g to patient partner. Discussed positive chlamydia results. No sex. And I discussed safe sex with patient. Discussed importance of partner treatment. Ordered third trimester labs. 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 Patient has follow-up ultrasound in 6 to 8 weeks. Repeat test of cure in 4 weeks. 02/26/25 -?-?-?-?-?-?-?-?-?-?-?-?- 30w 0d 61.008 kg 97/68 absent unknown 29 146 active Fetus active. Patient reports that she has not had sex for 4 weeks. I advised patient that we will repeat her test for gonorrhea and chlamydia next visit. Fetus is active. She is taking her vitamins. Declined Tdap today. Denies contractions. Denies leaking, denies bleeding Test of cure next visit. Discussed labor precautions. Continue vitamins and iron. Increase fluids. Return in 2 weeks OB check 03/12/25 -?-?-?-?-?-?-?-?-?-?-?-?- 32w 0d 61.008 kg 93/64 absent cephalic 31 135 active Fetus active per patient. Denies contractions. Denies bleeding. Denies leaking. Patient reports compliance with Zithromax treatment New swab PLUS today for test of cure. Discussed safe sex practices and condom use. Discussed labor precautions and kick count twice a day. Increase fluids. Tdap today. Return in 2 weeks OB check, start disability today, field labor, back ache and ligament pain 04/08/25 -?-?-?-?-?-?-?-?-?-?-?-?- 35w 6d 62.256 kg 102/61 absent cephalic 34 145 active Fetus active. Patient reports that she is not having sex and that her and her partner took him Zithromax and she used the Diflucan as well. Reports good movement. Denies leaking, bleeding, contractions ALPHONSE for chlamydia in 3 weeks. GBS today. Discussed labor precautions and kick count. Discussed safe sex and no sex for now. Patient to do kick count twice a day. Return in 2 weeks OB check CELIA Calculator Estimated Delivery Date Method Current WG Current Estimate 05/07/25 Ultrasound #1 35w 6d Other Estimates 04/22/25 LMP (Certain) 38w 0d 05/07/25 Ultrasound #2 35w 6d 05/07/25 Manual 35w 6d final CELIA: 04/27 07/21 Notes Visit Date: 03/12/25 Last Updated by: Sravani Pan CNM Final celia 05/07/25 Visit Date: 02/26/25 Last Updated by: Sravani Pan CNM 3rd tri labs: 12.3/39, 4.8, RPR::NR, 1 hr gtt: 136 Visit Date: 01/28/25 Last Updated by: Sravani Pan CNM 01/28: ALPHONSE +. rx 1 gm zithromax to patient and partner Visit Date: 11/21/24 Last Updated by: Sravani Pan CNM 24 yo LMP 07/16/24.. EDC 04/22/25. wrong dates. OB sono 10/23/24: 12 wk. EDC 05/07/25. HBsag-, hiv-,HC-, GC/CT- rub ni, O+,abs-, Chlamydia+/GC-. /NIPT-/Girl, SMA-, CF- RX zithromax 1 gm to pt and partner 11/21 Office Procedures OBC Clinic LOC & Office Proc's Nursing/Assessment Patient Status: Established Patient OB Clinic Nursing Assessment: Medication Reconciliation, Update PMH in EMR and Vital Signs OB Clinic Coordination of Care: Complex Care and Chronic Disease 1-5, Education Complex Pt/Fam, Consent,records obtained, informed consent, Results/Orders obtained and Staff clarify orders Special Needs: Heart tones Established Patient Charge Established Patient Point Assignment: 125 Established Patient Point Charge: EP Level 4 (120-155) Assessment & Plan Diagnosis / Problem List (1) Encounter for supervision of normal in multigravida in third trimester: Status: Acute Plan TLC for chlamydia in 3 weeks. Discussed safe sex. Discussed no sex. Discussed labor precautions and kick count. GBS today. Return in a week OB check. 3 Additional Plan Follow Up: 2 Weeks (obc)
== END 2025-04-08 16:01 | disposition home or self-care (01) ==
LOC: HODSOBC 15:41
PROVIDERS: Supervising Provider Advanced Practice Midwife; Visit Provider Advanced Practice Midwife
DX: Z34.83 Encounter for supervision of other normal pregnancy, third trimester (principal); Z3A.35 35 weeks gestation of pregnancy; Z36.85 Encounter for antenatal screening for Streptococcus B
CPT/HCPCS: 99214; G0463

== ENCOUNTER 2025-04-19 11:09 | Observation (INO) | payer MEDICAID, SELFPAY ==
[2025-04-19 11:21] VITALS: BP 101/59; PULSE 61; RESP 20; TEMP 37.1; BMI 27.4
[2025-04-19 11:22] VITALS: BP 101/59; PULSE 61
[2025-04-19 12:08] LABS: ROM Kit Exp Date# 04/11/20; ROM Kit Lot # 58106258; ROM Swab Mixed By: LOPEC2; Swb Mxed in Solvent 1 min? Yes
[2025-04-19 12:09] LABS: Rupture of Fetal Membranes Negative (Negative)
== END 2025-04-19 12:27 | disposition home or self-care (01) ==
PROVIDERS: Admitting Provider Advanced Practice Midwife; Visit Provider Advanced Practice Midwife
DX: Z34.83 Encounter for supervision of other normal pregnancy, third trimester (principal); Z3A.37 37 weeks gestation of pregnancy
CPT/HCPCS: 59025; 59899; 84112

== ENCOUNTER 2025-04-21 01:51 | Inpatient (IN) | payer MEDICAID, SELFPAY ==
[2025-04-21] VITALS (27 sets, daily range): BP systolic 95–140; BP diastolic 53–69; PULSE 65–120; RESP 16–100; TEMP 36.4–37.1; O2SAT 97–99; BMI 26.3; BMI 27.1
[2025-04-21] MEDS: Ampicillin Inj 2,000 MG in SODIUM CHLORIDE 0.9% (POP) 100 ML 200 MG IV (02:49)
[2025-04-21] MEDS: RINGERS LACTATED 1000 ML 1,000 ML 100 ML IV (02:53)
[2025-04-21 03:12] LABS: Basophils # (Auto) 0.0 Thou/mm3 (0.0-0.2); Basophils % (Auto) 0 % (0-2.5); Eosinophils # (Auto) 0.2 Thou/mm3 (0.0-0.5); Eosinophils % (Auto) 2 % (0-10); Hematocrit 33.3 % (36.0-46.0); Hemoglobin 10.7 g/dL (12.0-16.0); Immature Granulocytes Auto 0.12 Thou/mm3 (0.00-0.00); Lymphocytes # (Auto) 2.7 Thou/mm3 (1.0-4.8); Lymphocytes % (Auto) 22 % (10-50); Mean Corpuscular HGB Conc 32.1 g/dl (31.0-37.0); Mean Corpuscular Hemoglobin 26.4 pg (25.0-35.0); Mean Corpuscular Volume 82 fL (80-100); Monocytes # (Auto) 0.7 Thou/mm3 (0.0-0.8); Monocytes % (Auto) 6 % (0-12); Neutrophils # (Auto) 8.7 Thou/mm3 (1.8-7.7); Neutrophils % (Auto) 70 % (37-80); Nucleated Red Blood Cell # 0.00 Thou/mm3 (0.00-0.00); Nucleated Red Blood Cell % 0 /100 WBC (0); Platelet Count 143 Thou/mm3 (140-440); RDW Standard Deviation 42.5 fL (36.4-46.3); Red Blood Count 4.06 Miln/mm3 (4.00-5.20); White Blood Count 12.4 Thou/mm3 (3.6-11.0)
[2025-04-21 03:47] LABS: Syphilis Nonreactive (Nonreactive)
[2025-04-21] MEDS: Ampicillin Inj 1,000 MG in SODIUM CHLORIDE 0.9% (Popper) 50 ML 50 MG IV (06:12)
[2025-04-21] MEDS: fentaNYL CIT INJ 50 mCg/ML AMP 2ML 100 MCG IVP (06:24)
[2025-04-21] MEDS: MINERAL OIL 30 ML UDC TOP (07:12)
[2025-04-21] MEDS: OXYTOCIN in NS 20 units 20 UNIT/1,000 ML BAG 125 UNIT IV (07:17)
[2025-04-21] MEDS: TRANEXAMIC ACID 1,000 MG IVPB 1,000 MG/100 ML BAG 200 MG IV ×2 (07:20→09:09)
[2025-04-21] MEDS: OXYTOCIN INJ 10 UNIT/ML VIAL IM (07:21)
[2025-04-21] MEDS: IBUPROFEN TAB 400 MG TABLET 800 MG PO (07:27)
[2025-04-21] MEDS: METHYLERGONOVINE INJ 0.2 MG/ML VIAL IM (07:34)
--- NOTE | 2025-04-21 07:56 | PD.LDHP ---
Documentation for date of: 04/21/25 OB Labor/Induct. HPI History of Present Illness Chief complaint: labor : 3 Para: 2 Term pregnancies: 2 pregnancies: 0 Living children: 2 History of Abortions: Spontaneous and Elective: 0 History of Vaginal deliveries: 2 History of sections: No History of : No Date of last menstrual period: 07/16/24 CELIA: 04/22/25 Gestational Age (weeks): 37 Gestational Age (days): 5 Gestational age based on last menstrual period: 39 History of present illness: 20-year-old 3 para 2 admitted for complaints of labor since 10 PM. Patient is been followed at [facility] for care. The first visit was in second trimester. Poor dates. Her last period was July 16, 2024 and this gave an EDC April 1501-18. However patient had an ultrasound January 22 she was 25 weeks and was changed to EDC to 05/07/25. Denies social habits, denies surgery. Denies social habits. Reports good movement. Patient had positive chlamydia in the and was treated x 2. Test of cure was not done after last treatment because she was recently treated for chlamydia again in February. Denies leaking, bleeding History of Present Dating criteria: based on 2nd trimester US only Adequate Care: Yes Ultrasounds: normal mid trimester US Obstetrical complications: none Medical complications: none Labs Labs: Positive: Rubella Titre and Chlamydia, Negative: RPR, Hepatitis B, HIV and Gonorrhea and Unknown: Herpes Type 1, Herpes Type 2, Group Beta Strep and Covid-19 Review of Systems Review of Systems Systems Reviewed: All systems reviewed, normal except as documented Past Medical History Surgical History SURGICAL: Negative Section Meds Home Medications and Allergies Home Medications ?Medication ?Instructions ?Recorded ?Confirmed ?Type vits no.126-ferrous fum 1 tab PO QDAY 10/23/24 04/19/25 History 28 mg iron-folic acid 800 mcg tablet (Classic ) Allergies Allergy/AdvReac Type Severity Reaction Status Date / Time No Known Allergies Allergy Verified 04/21/25 02:40 OB Exam Physical Exam Vital signs: Temp Pulse Resp BP Pulse Ox O2 Del Method 98.1 F 88 18 98/57 L 97 Room Air 04/21/25 07:15 04/21/25 07:48 04/21/25 07:15 04/21/25 07:48 04/21/25 02:27 04/21/25 07:15 Narrative: Alert and oriented. Normal heart rate and rhythm. Lungs clear no wheezes. Gravid abdomen. Gynecoid pelvis. Estimated weight 6-1/2 pounds. Vaginal exam on admission was 90%, 4, -1. Vertex intact bagel water. Contractions are every 3 minutes and strong Detailed Labor and Delivery Exam Dilation (cm): 4 Effacement (%): 80 Cervix position: mid station: -1 Consistency: soft Presentation: Vertex Cervical ripeness score: 8 Membranes: intact Baseline heart rate: 145 monitor accelerations: 15x15 monitor decelerations: None termite treater variability: Moderate (11-25) Contraction frequency (min): 3 Contraction duration (sec): 40 Tachysystole: Yes Contraction intensity: Moderate OB Results Labs 04/21/25 02:40 Labs: Short CBC 04/21/25 Range/Units 02:40 WBC 12.4 H (3.6-11.0) Thou/mm3 Hgb 10.7 L (12.0-16.0) g/dL Hct 33.3 L (36.0-46.0) % Plt Count 143 (140-440) Thou/mm3 OB Assessment & Plan Additional Plan Induction method: none Plan: anticipate NVD and consult MD jones
--- NOTE | 2025-04-21 08:03 | PD.LDDELS ---
Data ([facility]) Data Hx Section: No : 3 Term: 2 : 0 Livin Abortions: Spontaneous & Theraputic: 0 Delivery Data ([facility]) Labor Data Initiation of labor: Spontaneous Induction/Augmentation Agent: None ROM date: 04/21/25 ROM time: 07:10 Amniotic membrane rupture type: Artificial Amniotic fluid description: Clear Delivery Data EDC: 05/07/25 EDC calculated by:: ultrasound Date of arrival to unit: 04/21/25 Time of arrival to unit: 01:51 Onset of labor date: 04/21/25 Onset of labor time: 02:19 Complete dilation date: 04/21/25 Complete dilation time: 07:10 delivery date: 04/21/25 [place] delivery time: 07:13 Gestational age (weeks): 37 Gestational age (days): 5 Placenta delivery date: 04/21/25 Placenta delivery time: 07:20 Stage 1 total time: Labor - Stage 1 Duration 4 hours and 51 minutes Delivered by: Erika Pan Delivery nurse: Dianelys Katz nurse: [email or web address] Mechanical Product Engineer at delivery: No Support person(s) at delivery: fob Delivery Method Delivery method: Normal Vaginal Delivery Presentation: Vertex position: OA Anesthesia Type Anesthesia Type: None Delivery Room Medications Delivery room medications given: fentanyl Delivery room medications: Methergine 0.2 mg IM, Pitocin 10 u IM, Pitocin 20 u IV, Cytotec 800 DC and other (txa) Placenta Placenta delivery description: Spontaneous (inspected, intact) Cord blood sent to lab: Yes cord blood collection: Cord Blood Type Episiotomy Episiotomy description: None EBL Estimated blood loss (ml): 400 Umbilical Cord cord description: 3 Vessels (sgort, posterior arm) Additional Procedures straight cath for 1000 urine, prior delivery Data ([facility]) [place] Data order: 1 [place]'s gender: Female Identification band number: [id number] 1 minute: 9 5 minutes: 9
[2025-04-21 09:49] LABS: Chlamydia trachomatis PCR Negative (Not Detect); Neisseria Gonorrhoeae DNA PCR Negative (Not Detect); Trichomonas Negative (Negative)
[2025-04-21 18:22] LABS: Basophils # (Auto) 0.1 Thou/mm3 (0.0-0.2); Basophils % (Auto) 0 % (0-2.5); Eosinophils # (Auto) 0.1 Thou/mm3 (0.0-0.5); Eosinophils % (Auto) 1 % (0-10); Hematocrit 34.2 % (36.0-46.0); Hemoglobin 11.3 g/dL (12.0-16.0); Immature Granulocytes Auto 0.17 Thou/mm3 (0.00-0.00); Lymphocytes # (Auto) 3.1 Thou/mm3 (1.0-4.8); Lymphocytes % (Auto) 14 % (10-50); Mean Corpuscular HGB Conc 33.0 g/dl (31.0-37.0); Mean Corpuscular Hemoglobin 27.4 pg (25.0-35.0); Mean Corpuscular Volume 83 fL (80-100); Monocytes # (Auto) 1.3 Thou/mm3 (0.0-0.8); Monocytes % (Auto) 6 % (0-12); Neutrophils # (Auto) 17.1 Thou/mm3 (1.8-7.7); Neutrophils % (Auto) 78 % (37-80); Nucleated Red Blood Cell # 0.00 Thou/mm3 (0.00-0.00); Nucleated Red Blood Cell % 0 /100 WBC (0); Platelet Count 147 Thou/mm3 (140-440); RDW Standard Deviation 43.9 fL (36.4-46.3); Red Blood Count 4.12 Miln/mm3 (4.00-5.20); White Blood Count 21.8 Thou/mm3 (3.6-11.0)
[2025-04-22 00:25] VITALS: BP 116/71; PULSE 61; RESP 18; TEMP 36.7; O2SAT 97
[2025-04-22 03:55] VITALS: BP 103/63; PULSE 61; RESP 16; TEMP 36.6; O2SAT 96
[2025-04-22] MEDS: IBUPROFEN TAB 400 MG TABLET 800 MG PO (04:27)
[2025-04-22 08:07] LABS: Basophils # (Auto) 0.1 Thou/mm3 (0.0-0.2); Basophils % (Auto) 0 % (0-2.5); Eosinophils # (Auto) 0.3 Thou/mm3 (0.0-0.5); Eosinophils % (Auto) 2 % (0-10); Hematocrit 33.7 % (36.0-46.0); Hemoglobin 10.9 g/dL (12.0-16.0); Immature Granulocytes Auto 0.27 Thou/mm3 (0.00-0.00); Lymphocytes # (Auto) 4.2 Thou/mm3 (1.0-4.8); Lymphocytes % (Auto) 22 % (10-50); Mean Corpuscular HGB Conc 32.3 g/dl (31.0-37.0); Mean Corpuscular Hemoglobin 27.0 pg (25.0-35.0); Mean Corpuscular Volume 84 fL (80-100); Monocytes # (Auto) 0.9 Thou/mm3 (0.0-0.8); Monocytes % (Auto) 5 % (0-12); Neutrophils # (Auto) 13.3 Thou/mm3 (1.8-7.7); Neutrophils % (Auto) 70 % (37-80); Nucleated Red Blood Cell # 0.00 Thou/mm3 (0.00-0.00); Nucleated Red Blood Cell % 0 /100 WBC (0); Platelet Count 140 Thou/mm3 (140-440); RDW Standard Deviation 44.6 fL (36.4-46.3); Red Blood Count 4.03 Miln/mm3 (4.00-5.20); White Blood Count 19.1 Thou/mm3 (3.6-11.0)
[2025-04-22 08:13] VITALS: BP 100/63; PULSE 62; RESP 17; TEMP 36.5; O2SAT 97
--- NOTE | 2025-04-22 08:43 | PD.LDDS ---
DS: Providers Provider Date of admission: 04/21/25 02:37 Primary care physician: Physician No Primary/Family Admitting Provider: Roselyn Givens MD Attending Provider on Admission: Sravani Pan CNM Consults: 04/21/25 09:45 Referral Routine Comment: Attending Provider on DC: Sravani Pan CNM Discharging Provider: Sravani Pan CNM DS: Diagnosis Problem List Completed Was Problem List Reviewed/Reconciled?: Yes Summary/Hosp Course Brief History: 20-year-old 3 para 2 admitted for complaints of labor since 10 PM. Patient is been [facility]. The first visit was in second trimester. Poor dates. Her last period was July 16, 2024 and this gave an EDC April 1501-18. However patient had an ultrasound January 22 she was 25 weeks and was changed to EDC to 05/07/25. Denies social habits, denies surgery. Denies social habits. Reports good movement. Patient had positive chlamydia in the and was treated x 2. Test of cure was not done after last treatment because she was recently treated for chlamydia again in February. Denies leaking, bleeding Peripartum Data Delivery Method: Normal Vaginal Delivery Episiotomy Description: None Laceration Description: yes (vaginal) complications: none Time Spent with Patient Time attestation: Total time spent providing and/or coordinating discharge services: Exam Vital Signs Temp Pulse Resp BP Pulse Ox O2 Del Method 97.8 F 61 16 103/63 96 Room Air 04/22/25 03:55 04/22/25 03:55 04/22/25 03:55 04/22/25 03:55 04/22/25 03:55 04/22/25 03:55 Discharge Plan Plan Patient Disposition: HOME (Self Care) Patient condition on transfer: Stable Prescriptions/Referrals Prescriptions/Med Rec: No Action Classic 28 mg iron- 800 mcg tablet 1 tab PO QDAY Referrals: No Primary/Family,Physician [Primary Care Provider] Patient/Caregiver Discharge Instructions Discharge Activity: resume usual activities Print Language: Greek Activity Restrictions/Additional Instructions: Discharge home with baby. Continue vitamins and iron. Tylenol and ibuproProfen for pain. Discussed danger signs symptoms and ER precautions. Discussed signs symptoms of infection. Return in 3 weeks OB check Stand Alone Forms: Noreen Award Info., Patient Portal Info Letter Discharge Order Discharge Orders: Discharge (Routine); Ordered 04/22/25 Ordered By: Sravani Pan Planned Discharge Date 04/22/25
--- NOTE | 2025-04-22 08:44 | ESPR_ITS ---
Subjective Subjective Interval history: No complaints of pain. No dizziness. Bonding and breast-feeding. Afebrile. Exam Vital Signs Temp Pulse Resp BP Pulse Ox O2 Del Method 97.8 F 61 16 103/63 96 Room Air 04/22/25 03:55 04/22/25 03:55 04/22/25 03:55 04/22/25 03:55 04/22/25 03:55 04/22/25 03:55 Narrative Exam Vital signs stable afebrile. BS are soft. Fundus firm below umbilicus. Perineum intact no swelling. Small lochia. Uterus well involuted. Negative Homans' sign. 2+ DTRs Objective Labs 04/21/25 17:23 Labs: Laboratory Results - last 24 hr 04/21/25 04/21/25 02:40 17:23 WBC 21.8 H D RBC 4.12 Hgb 11.3 L Hct 34.2 L MCV 83 MCH 27.4 MCHC 33.0 RDW Std Deviation 43.9 Plt Count 147 Neut % (Auto) 78 Lymph % (Auto) 14 [place] % (Auto) 6 Eos % (Auto) 1 Baso % (Auto) 0 Neut # (Auto) 17.1 H Lymph # (Auto) 3.1 [place] # (Auto) 1.3 H Eos # (Auto) 0.1 Baso # (Auto) 0.1 Immature Gran # (Auto) 0.17 H Absolute Nucleated RBC 0.00 Immature Gran % 1 H Nucleated RBC % 0 Chlam trachomat DNA PCR Negative N.gonorrhoeae DNA (PCR) Negative Trichomonas DNA Probe Negative Assessment & Plan Assessment Comment Assessment comment: 24 hr pp Plan Comment Plan Comment: Discharge home with baby. Continue vitamins and iron. Tylenol ibuprofen for pain. Discussed danger signs symptoms and ER precautions. I discussed signs symptoms of infection comfort measures for vaginal laceration. And return in 3 weeks visit Time Spent With Patient Time: Total time spent is greater than 50% in coordination of care (as documented) at patient's floor/unit and/or counseling patient:
--- NOTE | 2025-04-22 10:34 | PC.NURSE ---
According to Pharmacist, patient received TDap on 03/12/25. a new shot is not indicated.
[2025-04-22 12:00] VITALS: BP 98/64; PULSE 63; RESP 16; TEMP 36.6; O2SAT 98
[2025-04-22] MEDS: ACETAMINOPHEN 325 MG TABLET 650 MG PO (12:55)
== END 2025-04-22 15:17 | disposition home or self-care (01) | DRG 560 ==
LOC: S4SX 07:44 → S4NX 09:39
PROVIDERS: Admitting Provider Obstetrics & Gynecology; Visit Provider Advanced Practice Midwife
DX: O98.32 Other infections with a predominantly sexual mode of transmission complicating childbirth (principal); Z3A.37 37 weeks gestation of pregnancy; Z37.0 Single live birth; A56.2 Chlamydial infection of genitourinary tract, unspecified
CPT/HCPCS: 36415; 59409; 85025; 86780; 86850; 86900; 86901; 87491; 87591; 87661; 90707; 94762; J0290; J2210; J2590; J2795; J3010; J3490; J7050; J7120; S0191; A9270

== ENCOUNTER 2025-05-20 11:34 | Outpatient (AMB) | payer MEDICAID, SELFPAY ==
--- NOTE | 2025-05-20 11:49 | AMBOBPPN_ITS ---
Vital Signs 05/20/25 11:58 Height 1.52 m Height Method Stated Weight 57.153 kg Weight Measurement Method Standing Scale BMI 24.6 BP 108/61 Blood Pressure Source Automatic Cuff Blood Pressure Location Left Upper Arm Position Sitting Respiration 18 Pulse 70 Pulse Source Monitor Temp 97.2 F Temp Source Oral Pulse Oximetry (%) 98 Oxygen Delivery Method Room Air Allergies/Home Meds Allergies & Medications Allergies No Known Allergies Allergy (Verified 05/20/25 11:59) Medication Reconciliation vits no.126-ferrous fum 28 mg iron-folic acid 800 mcg tablet (Classic ) 1 tab PO QDAY 10/23/24 [History Confirmed 05/20/25] vits no.130-ferrous fum 27 mg iron-folic acid 800 mcg tablet ( Vitamin) 1 tab PO QDAY pregancy #60 tabs 05/20/25 [Rx] Intake Visit Data Collection New Patient or Established: Established Patient (seen at [facility] within 3 years) 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 for Visit:: 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 Required: No Do You Feel Safe at Home: Yes Authorities Contacted: N/A PCP or OBGYN visit in last 3 months: Yes Date of Last PCP or OBGYN visit: 04/22/25 Hx Now: No Are you currently on any form of Control: No Pain Present Currently: No Pain Scale Used: [place]-Jacinto/Numerical Pain scale:: 0 Smoking Status Smoking Status: Never smoker Immunizations Flu Vaccine in the Last 12 Months: No Flu Vaccine Exclusion Criteria: No Exclusion Criteria SKIN CARVER: Past Medical History Past Medical History: No Hx Neurological Disorders, No Hx Cardiac Disorders, Yes Hx Cancer (PT STATES SHE HAD MOLAR CANCER IN 2020 FOR ABOUT 1.5 YRS, TREATED IN .), No Hx Blood Disorders, Yes Hx Anemia, Yes Hx Gastrointestinal Disorders, No Hx Renal Disease, No Hx Diabetes Mellitus Type 1 and No Hx Diabetes Mellitus Type 2 Questionnaires Covid-19 Vaccine Questionnaire Has patient been vacinated for Covid-19 Have you been vacinated for Covid-19: Yes Social History Living Situation History Lives With: Family Housing: House Housing Other:: Patient lives with her parents. This is a new father of the baby. Tobacco History Smoking Status: Never smoker Second Hand Smoke Exposure: No Alcohol History Alcohol Intake: Never Domestic Abuse History Do You Feel Safe at Home: Yes EPDS - PP Depression Screening [place] Pospartum Depression Screen I have been able to laugh and see the funny side of things: (0) As much as I always could I have looked forward with enjoyment to things: (0) As much as I ever did I have blamed myself unnecessarily when things went wrong: (0) No, never I have been anxious or worried for no good reason: (0) No, not at all I have felt scared or panicky for no very good reason: (0) No, not at all Things have been getting on top of me: (0) No, I have been coping as well as ever I have been so unhappy that I have had difficulty sleeping: (0) No, not at all I have felt sad or miserable: (0) No, not at all I have been so unhappy that I have been crying: (0) No, never The thought of harming myself has occurred to me: (0) Never Total Score: EPDS Score: Referral is indicated for score of 9 or more, suicidal, or if provider believes patient is depressed regardless of score.: 0 EPDS completed yes Care OB Visit Log OB Flowsheet Initial Weight: Not Recorded Date -?-?-?-?-?-?-?-?-?-?-?-?- EGA Weight BP Alb Glu CTX Pres Fundal ht FHR Mov Dilation Station Effacement Hx Notes Visit Note 10/23/24 -?-?-?-?-?-?-?-?-?-?-?-?- 12w 0d 57.266 kg 106/65 14w0d by LMP (CELIA 04/22/25). ? appetite. No CTX/LOF/VB. 2 prior VD ([facility], [place]). vitamins. Kinyarwanda-speaking. FHR 149 bpm, single live IUP, EGA 12w0d by bedside US. Plan: formal US for dating/anatomy, routine labs, continue vitamins, f/u after results. Routine care initiated, anticipatory guidance provided. 11/21/24 -?-?-?-?-?-?-?-?-?-?-?-?- 16w 1d 59.421 kg 97/57 absent unknown 16 145 doing well , light FM, no SAB complaints discuss lab, AFP today. schedule M for anatomy scan. continue PNV, sab precaution, increase fluid. rtc 4 week discuss lab, AFP today. nellie dozier M for anatomy scan. continue PNV, sab preca ution, increase fluid. rtc 4 week. + chlamydia, reviewed results with patient, discuss safe sex, ordered Zithromax 1 gm to patient and partner. no sex x 1 week, condom x 2 week. ALPHONSE in 4 week 12/31/24 -?-?-?-?-?-?-?-?-?-?-?-?- 21w 6d 59.988 kg 114/69 absent unknown 23 145 active no OB complaints, fetus active Nuswab plus/ALPHONSE. ptl precaution. hydrate. keep appointment 01/02. rtc 4 week OBC. safe sex 01/28/25 -?-?-?-?-?-?-?-?-?-?-?-?- w 6d 58.74 kg 96/58 absent unknown 25 147 active + Nuswab ALPHONSE for chlamydia. + yeast. . fetus active, no VB,no ROM,Nu leaking, fetus active Zithromax 1 g to patient partner. Discussed positive chlamydia results. No sex. And I discussed safe sex with patient. Discussed importance of partner treatment. Ordered third trimester labs. Ordered SKIN CARVER Lotrimin 1-2 per vagina every night for 3 nights. Patient has follow-up ultrasound in 6 to 8 weeks. Repeat test of cure in 4 weeks. 02/26/25 -?-?-?-?-?-?-?-?-?-?-?-?- 30w 0d 61.008 kg 97/68 absent unknown 29 146 active Fetus active. Patient reports that she has not had sex for 4 weeks. I advised patient that we will repeat her test for gonorrhea and chlamydia next visit. Fetus is active. She is taking her vitamins. Declined Tdap today. Denies contractions. Denies leaking, denies bleeding Test of cure next visit. Discussed labor precautions. Continue vitamins and iron. Increase fluids. Return in 2 weeks OB check 03/12/25 -?-?-?-?-?-?-?-?-?-?-?-?- 32w 0d 61.008 kg 93/64 absent cephalic 31 135 active Fetus active per patient. Denies contractions. Denies bleeding. Denies leaking. Patient reports compliance with Zithromax treatment New swab PLUS today for test of cure. Discussed safe sex practices and condom use. Discussed labor precautions and kick count twice a day. Increase fluids. Tdap today. Return in 2 weeks OB check, start disability today, field labor, back ache and ligament pain 04/08/25 -?-?-?-?-?-?-?-?-?-?-?-?- 35w 6d 62.256 kg 102/61 absent cephalic 34 145 active Fetus active. Patient reports that she is not having sex and that her and her partner took him Zithromax and she used the Diflucan as well. Reports good movement. Denies leaking, bleeding, contractions ALPHONSE for chlamydia in 3 weeks. GBS today. Discussed labor precautions and kick count. Discussed safe sex and no sex for now. Patient to do kick count twice a day. Return in 2 weeks OB check CELIA Calculator 2 Estimated Delivery Date Method Current WG Current Estimate 05/07/25 Ultrasound #1 41w 6d Other Estimates 04/22/25 LMP (Certain) 44w 0d 05/07/25 Ultrasound #2 41w 6d 05/07/25 Manual 41w 6d final CELIA: 04/27 07/21 Notes Visit Date: 03/12/25 Last Updated by: Sravani Cornelius CNM Final cleia 05/07/25 Visit Date: 02/26/25 Last Updated by: Sravani Cornelius CNM 3rd tri labs: 12.3/39, 4.8, RPR::NR, 1 hr gtt: 136 Visit Date: 01/28/25 Last Updated by: Sravani Cornelius CNM 01/28: ALPHONSE +. rx 1 gm zithromax to patient and partner Visit Date: 11/21/24 Last Updated by: Sravani Cornelius CNM 24 yo LMP 07/16/24.. EDC 04/22/25. wrong dates. OB sono 10/23/24: 12 wk. EDC 05/07/25. HBsag-, hiv-,HC-, GC/CT- rub ni, O+,abs-, Chlamydia+/GC-. /NIPT-/Girl, SMA-, CF- RX zithromax 1 gm to pt and partner 11/21 HPI Interval History: 25-year-old 3 para 3 for 4-week and Depo start. Patient had a vaginal April 21, 2025. A baby girl weighing 6 pounds 12. She is breast-feeding. She is happy and denies depression. Siblings adjusting. Limited help at home. She has no interval complaints. She is not sexually active at this point and she would like to start Depo today. Patient used Depo in the past with no problems Was or delivery considered high risk: No Delivery type: vaginal Was labor induced: no Gestational age at delivery (weeks): 37 Delivery date: 05/01/25 Delivering provider: fransisco cornelius Delivery complications: No Is patient : Yes Is patient sexually active: No Contraception planned: depo Review of Systems Review of Systems ROS limited to current SKIN CARVER complaints: No Exam Narrative Physical exam: Normal heart rate and rhythm. Lungs clear no wheezes. Abdomen is soft nontender. Uterus well involuted. Perineum is intact no lacerations. No swelling. Small lochia. Negative Homans' sign. 2+ DTRs. No edema no swelling. Breasts are soft Office Procedures OBC Clinic LOC & Office Proc's Nursing/Assessment Patient Status: Established Patient OB Clinic Nursing Assessment: Medication Reconciliation, Update PMH in EMR and Vital Signs OB Clinic Coordination of Care: Complex Care and Chronic Disease 1-5, Consent,records obtained, informed consent, Education Simp Pt/Fam, 1 Ins Authorization, Lab and Imaging orders, Results/Orders obtained and Staff clarify orders Established Patient Charge Established Patient Point Assignment: 120 Established Patient Point Charge: EP Level 4 (120-155) Injection/Vaccine Admin SQ Im Injection: Yes Office Meds Depo-Provera 150 mg/mL intramuscular syringe Performing Provider: Sravani Cornelius CNM Performing Location: [facility] Administered by: Darlene Chavez MA on 05/20/25 12:19 Dose Route Admin Location Dispensed Lot Number Expiration Date Pack age [facility] Fine Unhairer 150 mg IM LEFT DELTOID 1 mL [id number] 03/16/26 3805-6121-53 [id number] [facility] Results Urine HCG Urine HCG Negative Last Edit by Darlene Chavez MA on 05/20/25 12:22 Assessment & Plan Diagnosis / Problem List (1) Routine Follow-Up: Plan: Depo-Provera 150 today. Patient to continue vitamins. I refilled those. Walk 40 minutes a day. Discussed side effects and danger signs symptoms and effectiveness of Depo. Condoms for 2 weeks. Return in a year for Pap. And patient will return for repeat Depo in 3 months (2) 6 weeks follow-up: Status: Acute (3) Encounter for management and injection of depo-Provera: Status: Acute Plan Depo-Provera 150 mg IM today. Continue prenatals. Walk 40 minutes a day. Review method side effects dates and symptoms and effectiveness. Condoms for 2 weeks. I refilled prenatals. Return in a year for Pap and 3 months for Depo. We discussed latching and increasing fluids Care Reviewed delivery summary and any complications: Yes Uterus involuted to: 3 below umb Perineal / incision healing noted: Yes Screened for depression: Yes Depression counseling provided: No Discussed family planning & contraception: Yes Contraception planned: depo Counseling on safe resumption of sexual activity: Yes Counseling on gradual excercise: Yes Discussed and concerns (describe), provided support: Yes Counseled on good nutrition, hydration, and self care: Yes Reviewed vaccine status: Yes Chronic & current problems reconciled on problem list: Yes care discussed; questions answered: feeding Follow up: routine/prn Additional counseling & anticipatory guidance provided: Depo 150 IM x 1. Condoms for 2 weeks. Return in 3 months repeat Depo and in a year for Pap (FP) Tobacco Smoking Status: Never smoker
[2025-05-20 11:58] VITALS: BP 108/61; PULSE 70; RESP 18; TEMP 36.2; O2SAT 98; BMI 24.6
== END 2025-05-20 12:16 | disposition home or self-care (01) ==
LOC: HODSOBC 11:34
PROVIDERS: Supervising Provider Advanced Practice Midwife; Visit Provider Advanced Practice Midwife
DX: Z39.2 Encounter for routine postpartum follow-up (principal); Z30.013 Encounter for initial prescription of injectable contraceptive; Z39.1 Encounter for care and examination of lactating mother
CPT/HCPCS: 96372; 99213; 99214; J3490; G0463